=== PATIENT | male | born 1975 | race Caucasian/White ===

== ENCOUNTER 2018-12-30 06:02 | Day surgery (SDC) | payer BC ==
[~2018-12-30] VITALS: Ht 203.2 cm; Wt 148.2 kg
[~2018-12-30 06:02] MED LIST: BALANCED B PO; DULO60 PO; FISH OIL + D31 EACH PO; Inderal40 MG PO
--- NOTE | 2018-12-30 06:27 | NUR ---
Ambulatory in Day Surgery History, Chart, Medications and Allergies reviewed before start of procedure.Lungs clear T/O to Auscultation. Patient confirms NPO status and agrees with scheduled surgery.
--- NOTE | 2018-12-30 10:06 | NUR ---
Discharge instructions reviewed with patient. Patient verbalizes understanding. Copy given to patient to take home. PATIENT AND SPOUSE DENY QUESTIONS NOR CONCERNS RELATED TO DISCHARGE. Discharged via wheelchair to private car for ride home.
== END 2018-12-30 23:22 | disposition home or self-care (01) ==
LOC: ORSCMMR 06:02 → ORD 07:30 → ORSCMMR 23:22
PROVIDERS: Surgery
PROC: 0JB40ZZ Excision of Right Neck Subcutaneous Tissue and Fascia, Open Approach (ICD-10-PCS; principal; 2018-12-30 07:30)
PROC: 0JB50ZZ Excision of Left Neck Subcutaneous Tissue and Fascia, Open Approach (ICD-10-PCS; principal; 2018-12-30 07:30)
DX: D17.0 Benign lipomatous neoplasm of skin and subcutaneous tissue of head, face and neck (principal); I10 Essential (primary) hypertension; G47.33 Obstructive sleep apnea (adult) (pediatric); E66.01 Morbid (severe) obesity due to excess calories; Z68.35 Body mass index [BMI] 35.0-35.9, adult; Z79.899 Other long term (current) drug therapy
CPT/HCPCS: 88305; 88342; A9270-GY; J0330; J0690; J1100; J2250; J2370; J2405; J2704; J2710; J3010; J7120

== ENCOUNTER → 2022-11-23 | Outpatient (CLI) | payer BC | END | disposition home or self-care (01) | LOC: LAB 13:40 → LAB SHORT 13:40 → EDSTATUS 10-26 11:35 → LAB FUT 10-26 11:35 | PROVIDERS: Internal Medicine | DX: R79.89 Other specified abnormal findings of blood chemistry (principal) | CPT/HCPCS: 81050 ==